=== PATIENT | male | born 1930 | race Caucasian/White ===

== ENCOUNTER 2021-03-01 22:59 | Inpatient (IN) | payer MEDICARE, OTHER ==
[~2021-03-01] VITALS: Ht 165.1 cm; Wt 73.0 kg
[2021-03-01] MEDS ORDERED: IV NS 0.9% 500 ML BAG IV ONE (23:30)
--- NOTE | 2021-03-01 23:30 | NUR ---
Sherita hoover in [facility] - 03/02/21 at 0417 by DASH pt placed on 3L O2
[2021-03-01] MEDS ORDERED: DILTIAZEM HCL 50 MG IV ONE (23:44)
[2021-03-01 23:55] LABS: BASOPHILS % (AUTO) 0.1 % (0.0-2.0); HEMATOCRIT 39 % (39-51); HEMOGLOBIN 12.9 g/dL (13.5-17.5); LYMPHOCYTES # (AUTO) 0.5 /CMM (0.8-4.8); LYMPHOCYTES % (AUTO) 2.7 % (20.0-44.0); MEAN CORPUSCULAR HGB CONC 33 g/dl (31.0-36.0); MEAN CORPUSCULAR VOLUME 86 fL (80-96); MONOCYTES # (AUTO) 1.3 /CMM (0.1-1.30); MONOCYTES % (AUTO) 7.5 % (2.0-12.0); NEUTROPHILS # (AUTO) 15.5 /CMM (1.8-8.9); NEUTROPHILS % (AUTO) 89.7 % (43.0-81.0); PLATELET COUNT (AUTO) 205 /CMM (150-450); RED BLOOD CELL COUNT(AUTO) 4.61 MIL/uL (4.5-6.0); WHITE BLOOD COUNT (AUTO) 17.3 K/uL (4.3-11.0)
--- NOTE | 2021-03-01 23:55 | NUR ---
INDU81 FROM [facility] FOR WEAKNESS. PT EYES OPEN, NONVERBAL. RR EVEN & UNLABORED. PLACED ON GUSSET MAKER, RAPID AFIB. PT SEEN & EVAL'D BY DR. BIANCHI. MEDICATED ORDERED, PT ZEINAB WELL. WILL CONT TO MONITOR.
--- NOTE | 2021-03-01 23:56 | NUR ---
Pt placed on 3L O2
[2021-03-02] VITALS (40 sets, daily range): BP systolic 99–133; BP diastolic 46–89
[2021-03-02] MEDS ORDERED: DILTIAZEM HCL 50 MG IV IV ONE
[2021-03-02 00:05] LABS: CALCIUM, SERUM 8.4 mg/dL (8.5-10.1); CARBON DIOXIDE 22 mmol/L (21-32); CHLORIDE 100 mmol/L (98-107); CREATININE 1.5 mg/dL (0.6-1.3); GLUCOSE 306 mg/dL (74-106); POTASSIUM 4.7 mmol/L (3.5-5.1); SODIUM SERUM 134 mmol/L (136-145); UREA NITROGEN, BLOOD 23 mg/dL (7-18)
[2021-03-02 00:10] LABS: ALANINE AMINOTRANSFERASE 8 U/L (12-78); ALBUMIN 2.8 g/dL (3.4-5.0); ALKALINE PHOSPHATASE 83 U/L (46-116); ASPARTATE AMINOTRANSFERASE 9 U/L (15-37); BILIRUBIN,DIRECT 0.1 mg/dL (0.0-0.2); BILIRUBIN,TOTAL 0.5 mg/dL (0.2-1.0); TOTAL PROTEIN, SERUM 6.6 g/dL (6.4-8.2)
--- NOTE | 2021-03-02 00:23 | NUR ---
covid swab sent to lab
--- NOTE | 2021-03-02 00:43 | NUR ---
urine obtained and sent to lab
--- NOTE | 2021-03-02 01:12 | NUR ---
called lab for f/u. they are running urine now
[2021-03-02 01:21] LABS: BILIRUBIN,URINE Negative (NEGATIVE); COLOR,URINE YELLOW (YELLOW); LEUKOCYTE ESTERASE ,URINE Negative (NEGATIVE); NITRITE, URINE Negative (NEGATIVE); PROTEIN,URINE Negative (NEGATIVE); UGLUCOSE Negative (NEGATIVE); UROBILINOGEN,URINE 0.2 EU/dL (0.2)
--- NOTE | 2021-03-02 01:23 | NUR ---
per lab, covid negative
--- NOTE | 2021-03-02 04:12 | NUR ---
covid swab sent to lab
--- NOTE | 2021-03-02 07:13 | NUR ---
gave report to KHUSHBU Menendez for [facility]
--- NOTE | 2021-03-02 07:23 | NUR ---
RECEIVED REPORT FROM KHUSHBU GILLETTE FOR [facility]. PT IS AAOX1, NOT IN RESPIRATORY DISTRESS, NOTED ELEVATED HEART RATE REFERRED TO . KEPT RESTED AND COMFORTABLE. WILL CONTINUE TO MONITOR.
[2021-03-02] MEDS ORDERED: TRAM50TA2 PO (07:43)
[2021-03-02] MEDS ORDERED: TAMS-12 PO (07:43)
[2021-03-02] MEDS ORDERED: ASPI-1420 PO (07:43)
[2021-03-02] MEDS ORDERED: METF-440 PO (07:43)
[2021-03-02] MEDS ORDERED: FINA5TAB11 PO (07:43)
[2021-03-02] MEDS ORDERED: LORA-258 PO (07:43)
[2021-03-02] MEDS ORDERED: CARB1TAB40 PO (07:43)
[2021-03-02] MEDS ORDERED: ACET-868 PO (07:43)
[2021-03-02] MEDS ORDERED: SENN-261 PO (07:43)
[2021-03-02] MEDS ORDERED: ESCI10TA PO (07:43)
[2021-03-02] MEDS: DILTIAZEM HCL IV 125 MG in IV NS 0.9% 100 ML IV PRN (07:45)
--- NOTE | 2021-03-02 07:45 | NUR ---
CARDIZEM DRIP STARTED 5ML PER HR TO START PER ER MD. TITRATE TO EFFECT.
--- NOTE | 2021-03-02 08:08 | NUR ---
PT SON ED
[2021-03-02] MEDS ORDERED: MAGNESIUM HYDROXIDE 30 ML UDC PO PRN (08:30)
[2021-03-02] MEDS ORDERED: ONDANSETRON HCL/PF 4 MG/2 ML VIAL IVP PRN (08:30)
[2021-03-02] MEDS ORDERED: MAG HYDROX/AL HYDROX/SIMETH 30 ML UDC PO PRN (08:30)
[2021-03-02 08:59] LABS: MAGNESIUM 1.6 mg/dL (1.8-2.4)
[2021-03-02] MEDS ORDERED: ENOXAPARIN SODIUM 60 MG/0.6 ML DISP.SYRIN SQ SCH (09:00)
[2021-03-02] MEDS ORDERED: AMIODARONE 150 MG in IV D5W 100 ML IV ONE (09:00)
[2021-03-02] MEDS ORDERED: ENOXAPARIN SODIUM 60 MG/0.6 ML DISP.SYRIN SQ ONE (09:07)
[2021-03-02] MEDS ORDERED: AMIODARONE 450 MG in IV D5W 250 ML IV PRN (09:30)
[2021-03-02] MEDS: AMIODARONE 450 MG in IV D5W 250 ML IV PRN ×2 (09:45→15:46)
[2021-03-02 10:05] LABS: THYROID STIMULATING HORMONE 0.92 uIU/mL (0.358-3.74)
--- NOTE | 2021-03-02 10:27 | NUR ---
room [id number]
[2021-03-02] MEDS ORDERED: LORAZEPAM 0.5 MG TABLET PO PRN (10:30)
[2021-03-02] MEDS ORDERED: TRAMADOL HCL 50 MG TABLET PO PRN (10:30)
--- NOTE | 2021-03-02 10:33 | NUR ---
REPORT GIVEN TO KHUSHBU BROOKS.
--- NOTE | 2021-03-02 10:45 | NUR ---
ADMITTED FROM ER WITH DIAGNOSIS OF AFIB WITH RVR. ONGOING AMIODARONE DRIP AT 1 MG/HR.MONITOR SHOWS AFIB RATE 110.SBP 120'S. PATIENT NONVERBAL, OPENS EYES TO TACTILE STIMULI. DOES NOT FOLLOW SIMPLE COMMANDS.NO SIGNS OF PAIN NOTED. SKIN INTACT ON INITIAL ASSESS-NOTED SOME SACRAL REDNESS ONLY.
[2021-03-02] MEDS: Magnesium 1GM/D5W 100ML PREMIX 100 ML IV SCH ×2 (11:55→13:08)
--- NOTE | 2021-03-02 12:00 | NUR ---
SPONTANEOUSLY OPENING EYES. NO VERBAL OUTPUT.
[2021-03-02] MEDS: IV NS 0.9% 1,000 ML IV PRN (14:03)
[2021-03-02] MEDS: CARBIDOPA/LEV CR 50/200 MG 1 UDTAB.SA PO SCH ×2 (14:18→17:38)
--- NOTE | 2021-03-02 15:50 | NUR ---
SPOKE TO DR. ROUSE RE: PATEINT COMVERTED TO SR WITH FRQUENT PVC'S- 80'S. PER MD -TO COMPLETE AMIODARONE DTT PER PROTOCOL.
--- NOTE | 2021-03-02 17:00 | NUR ---
[facility] ED VISITING. PATIENT UPDATE GIVEN.
--- NOTE | 2021-03-02 17:55 | NUR ---
REMAINS ON SR WITH FREQUENT PVC'S.BP STABLE. MORE AWAKE BUT DOESN'T FOLLOW SIMPLE COMMANDS. UNABLE TO SWALLOW MEALS AT THIS TIME. MEDS GIVEN WITH SIPS OF WATER.
--- NOTE | 2021-03-02 19:00 | NUR ---
Received patient awake,alert,follows simple commands,but still not talking( mumbles few words),not in any distress,breathing regular and non labored. On Amiodarone drip@ 0.5mg/min.
[2021-03-02] MEDS: SENNOSIDES 8.6 MG TABLET PO SCH (21:31)
[2021-03-02] MEDS: TAMSULOSIN 0.4 MG CAP.SR.24H PO SCH (21:31)
[2021-03-02] MEDS: FINASTERIDE (5 MG) 5 MG TABLET PO SCH (21:31)
--- NOTE | 2021-03-02 22:00 | NUR ---
More alert,awake most of the time,speaking few words in Austrian,follows commands.Remains in SR with occasional APC's. Needs attended.Tolerated PO meds (crushed with applesauce),small sips of water.Aspiration Precaution observed/maintained.
[2021-03-03] VITALS (34 sets, daily range): BP systolic 98–142; BP diastolic 47–79
--- NOTE | 2021-03-03 | NUR ---
Status unchanged,stable,Sinus rhythm,still on Amiodarone drip.
[2021-03-03] MEDS: IV NS 0.9% 1,000 ML IV PRN ×2 (02:07→20:27)
[2021-03-03 05:14] LABS: BASOPHILS % (AUTO) 0.2 % (0.0-2.0); EOSINOPHILS % (AUTO) 0.5 % (0.0-6.0); HEMATOCRIT 31 % (39-51); HEMOGLOBIN 10.6 g/dL (13.5-17.5); LYMPHOCYTES # (AUTO) 0.4 /CMM (0.8-4.8); LYMPHOCYTES % (AUTO) 3.6 % (20.0-44.0); MEAN CORPUSCULAR HGB CONC 34 g/dl (31.0-36.0); MEAN CORPUSCULAR VOLUME 85 fL (80-96); MONOCYTES # (AUTO) 0.9 /CMM (0.1-1.30); MONOCYTES % (AUTO) 9.1 % (2.0-12.0); NEUTROPHILS # (AUTO) 8.6 /CMM (1.8-8.9); NEUTROPHILS % (AUTO) 86.6 % (43.0-81.0); PLATELET COUNT (AUTO) 170 /CMM (150-450); RED BLOOD CELL COUNT(AUTO) 3.66 MIL/uL (4.5-6.0); WHITE BLOOD COUNT (AUTO) 9.9 K/uL (4.3-11.0)
[2021-03-03 05:28] LABS: ALANINE AMINOTRANSFERASE 13 U/L (12-78); ALKALINE PHOSPHATASE 59 U/L (46-116); ASPARTATE AMINOTRANSFERASE 17 U/L (15-37); BILIRUBIN,TOTAL 0.5 mg/dL (0.2-1.0); CALCIUM, SERUM 6.8 mg/dL (8.5-10.1); CARBON DIOXIDE 21 mmol/L (21-32); CHLORIDE 105 mmol/L (98-107); GLUCOSE 307 mg/dL (74-106); MAGNESIUM 1.6 mg/dL (1.8-2.4); PHOSPHORUS 1.8 mg/dL (2.5-4.9); POTASSIUM 3.5 mmol/L (3.5-5.1); SODIUM SERUM 135 mmol/L (136-145); TOTAL PROTEIN, SERUM 5.1 g/dL (6.4-8.2); UREA NITROGEN, BLOOD 18 mg/dL (7-18)
--- NOTE | 2021-03-03 06:00 | NUR ---
Stable ,awake,alert,follows commands. 0700 Report given to Eveline RÍOS.
[2021-03-03 06:09] LABS: CHOLESTEROL 135 mg/dL (<200); HDL CHOLESTEROL 29 mg/dL (40-60); LDL 84 mg/dL (0-99); THYROID STIMULATING HORMONE 0.943 uIU/mL (0.358-3.74); TRIGLYCERIDES 100 mg/dL (30-150)
[2021-03-03] MEDS ORDERED: POTASSIUM PHOSPHATE MM 15 MMOL in IV NS 0.9% 250 ML IV SCH (07:00)
--- NOTE | 2021-03-03 07:00 | NUR ---
RN NOTES RECEIVED PT ON BED, A/Ox1-2, ON 2L O2 N/C , O2 SAT WNL, ON TELE SR HR IN 90'S WITH PAC'S AND PVC'S , , BLUNT DRINING TO GRAVITY, NS AT 75CC/HR RUNNING , SR UP x3, CALL LIGHT WITHIN EASY REACH, BED LOCKED AND IN LOWEST POSITION, CONTINUE TO MONITOR .
[2021-03-03] MEDS: Magnesium 1GM/D5W 100ML PREMIX 100 ML IV SCH ×2 (07:24→08:29)
[2021-03-03] MEDS: POTASSIUM PHOSPHATE MM 7.5 MMOL in IV NS 0.9% 100 ML IV SCH ×2 (08:03→10:59)
[2021-03-03] MEDS: PANTOPRAZOLE 40 MG TABLET.DR PO SCH (08:14)
[2021-03-03] MEDS: AMIODARONE HCL 200 MG TABLET PO SCH ×3 (08:15→16:41)
[2021-03-03] MEDS: ESCITALOPRAM OXALATE (10 MG) 10 MG TABLET PO SCH (08:15)
[2021-03-03] MEDS: CARBIDOPA/LEV CR 50/200 MG 1 UDTAB.SA PO SCH ×3 (08:15→16:45)
[2021-03-03] MEDS: APIXABAN 5 MG TABLET PO SCH ×2 (08:19→16:45)
[2021-03-03] MEDS ORDERED: ASPIRIN EC 81 MG TABLET.DR PO SCH (09:00)
[2021-03-03] MEDS: BLOOD SUGAR DIAGNOSTIC 1 EACH STRIP VI SCH ×3 (11:55→22:12)
[2021-03-03] MEDS ORDERED: DEXTROSE 50%-WATER 50 ML DISP.SYRIN IV PRN (12:00)
--- NOTE | 2021-03-03 14:10 | NUR ---
RN NOTES PT TRANSFERRED TO ROOM 114-1 TELE STATUS IN STABLE CONDITION VIA ACLS PROTOCOL. REPORT GIVEN TO SEMAJ RÍOS FOR CONTINUITY OF CARE.
[2021-03-03] MEDS: SOD FERRIC GLUC 125 MG in IV NS 0.9% 100 ML IV SCH (14:15)
[2021-03-03] MEDS: INSULIN REGULAR, HUMAN 100 UNIT/ML 3 ML VIAL SQ PRN (16:49)
[2021-03-03] MEDS: GLUCERNA SHAKE 237 ML CAN PO SCH (17:39)
--- NOTE | 2021-03-03 18:00 | NUR ---
RN OPENING NOTE RECEIVED PATIENT ALERT ORIENTED X1 VERBALLY RESPONSIVE SERBIAN SPEAKER ONLY ON 2L OXYGEN VIA NASAL CANNULA,O2:95% IV SITE IS ON RIGHT AND LEFT HAND INTACT PATENT ON IV HYDRATION NS 75CC/HR BLUNT CATHETER IN PLACE URINE DRAINING DARK YELLOW AND CLOUDY SAFETY MEASURE IMPLEMENT CALL LIGHT WITHIN REACH,CONTINUE TO MONITOR
[2021-03-03] MEDS: FINASTERIDE (5 MG) 5 MG TABLET PO SCH (21:25)
[2021-03-03] MEDS: SENNOSIDES 8.6 MG TABLET PO SCH (21:25)
[2021-03-03] MEDS: TAMSULOSIN 0.4 MG CAP.SR.24H PO SCH (21:25)
[2021-03-03] MEDS: ACETAMINOPHEN 325 MG TABLET PO PRN (21:49)
[2021-03-03] MEDS: *INSULIN REGULAR(HUMULIN R)HUM 100 UNIT/ML VIAL SQ PRN (22:12)
[2021-03-04] VITALS: BP 135/58
[2021-03-04 04:00] VITALS: BP 136/60
--- NOTE | 2021-03-04 06:49 | NUR ---
RN CLOSING NOTE PATIENT REMAINS ON ALERT ORIENTED X1 ON 2L OXYGEN VIA NASAL CANNULA,O2:96% NO SOB NOT ACUTE DISTRESS NOTED ALL DUE MEDS GIVEN MD ORDERED KEPT CLEAN AND DRY ALL THE TIME,ALL NEEDS MET ENDORSE NEXT COMING SHIFT FOR CONTINUATION OF CARE
[2021-03-04 07:15] LABS: BASOPHILS % (AUTO) 0.2 % (0.0-2.0); EOSINOPHILS % (AUTO) 2.6 % (0.0-6.0); HEMATOCRIT 33 % (39-51); HEMOGLOBIN 11.2 g/dL (13.5-17.5); LYMPHOCYTES # (AUTO) 0.5 /CMM (0.8-4.8); MEAN CORPUSCULAR HGB CONC 34 g/dl (31.0-36.0); MEAN CORPUSCULAR VOLUME 84 fL (80-96); MONOCYTES # (AUTO) 0.9 /CMM (0.1-1.30); MONOCYTES % (AUTO) 11.4 % (2.0-12.0); NEUTROPHILS # (AUTO) 5.9 /CMM (1.8-8.9); NEUTROPHILS % (AUTO) 78.8 % (43.0-81.0); PLATELET COUNT (AUTO) 205 /CMM (150-450); RED BLOOD CELL COUNT(AUTO) 3.95 MIL/uL (4.5-6.0); WHITE BLOOD COUNT (AUTO) 7.5 K/uL (4.3-11.0)
--- NOTE | 2021-03-04 07:25 | NUR ---
RN OPENING NOTES PT RECEIVED RESTING IN SEMI-FOWLERS POSITION. PATIENT A&OX1 BOTSWANAN SPEAKING. PT ON O2 THERAPY VIA NC AT 2 LPM TOLERATING WELL. LEFT HAND #22 G IV ACCESS RUNNING NS AT 75 ML/HR INTACT AND PATENT. NO SWELLING OR REDNESS NOTED AT SITE. NO RESPIRATORY DISTRESS NO PAIN OR DISCOMFORT NOTED OR REPORTED AT THIS TIME. SAFETY PRECAUTIONS IMPLEMENTED, BED LOCKED IN LOWEST POSITION, SIDE RAILS UP X2, CALL LIGHT WITHIN REACH. WILL CONTINUE TO MONITOR AND PROVIDE CARE THROUGHOUT SHIFT
[2021-03-04] MEDS: BLOOD SUGAR DIAGNOSTIC 1 EACH STRIP VI SCH ×4 (07:30→22:07)
[2021-03-04 07:43] LABS: CALCIUM, SERUM 7.9 mg/dL (8.5-10.1); CREATININE 1.1 mg/dL (0.6-1.3); POTASSIUM 4.5 mmol/L (3.5-5.1)
[2021-03-04 08:00] VITALS: BP 105/66
[2021-03-04] MEDS: GLUCERNA SHAKE 237 ML CAN PO SCH ×2 (08:00→16:54)
[2021-03-04] MEDS: PANTOPRAZOLE 40 MG TABLET.DR PO SCH (09:16)
[2021-03-04] MEDS: AMIODARONE HCL 200 MG TABLET PO SCH ×3 (09:17→16:39)
[2021-03-04] MEDS: ESCITALOPRAM OXALATE (10 MG) 10 MG TABLET PO SCH (09:17)
[2021-03-04] MEDS: APIXABAN 5 MG TABLET PO SCH ×2 (09:23→16:54)
[2021-03-04] MEDS: INSULIN REGULAR, HUMAN 100 UNIT/ML 3 ML VIAL SQ PRN ×3 (09:23→16:56)
[2021-03-04] MEDS: CARBIDOPA/LEV CR 50/200 MG 1 UDTAB.SA PO SCH ×3 (09:26→16:53)
[2021-03-04] MEDS ORDERED: CEFTRIAXONE 1 G VIAL IM SCH (10:00)
[2021-03-04] MEDS: CEFTRIAXONE 1 G in IV D5W 50 ML IV SCH (11:46)
[2021-03-04 12:00] VITALS: BP 99/77
[2021-03-04] MEDS: SOD FERRIC GLUC 125 MG in IV NS 0.9% 100 ML IV SCH (14:36)
[2021-03-04 16:00] VITALS: BP 113/67
--- NOTE | 2021-03-04 19:10 | NUR ---
RN OPENING NOTE RECEIVED PATIENT IN BED RESTING ALERT ORIENTED X1 GREEK SPEAKING ONLY,ON 2L OXYGEN VIA NASAL CANNULA O2:94% IV SITE IS ON LEFT AND RIGHT HAND INTACT PATENT BLUNT CATHETER,IN PLACE URINE DRAINING RED AND CLOUDY,INCONTINENT TO BOWEL, BED IN LOW POSITION AND LOCKED BED ALARM IS ON, SAFETY MEASURE IMPLEMENT CONTINUE TO MONITOR.
--- NOTE | 2021-03-04 19:47 | NUR ---
RN CLOSING NOTES PT RESTING IN SEMI-FOWLERS POSITION. PATIENT A&OX1 ROMANIAN SPEAKING. PT ON O2 THERAPY VIA NC AT 2 LPM TOLERATING WELL. LEFT HAND #22 G IV ACCESS INTACT AND PATENT. NO SWELLING OR REDNESS NOTED AT SITE. NO RESPIRATORY DISTRESS NO PAIN OR DISCOMFORT NOTED OR REPORTED AT THIS TIME. SAFETY PRECAUTIONS IMPLEMENTED, BED LOCKED IN LOWEST POSITION, SIDE RAILS UP X2, CALL LIGHT WITHIN REACH. WILL ENDORSE CARE TO UPCOMING SHIFT.
[2021-03-04 20:00] VITALS: BP 134/84
[2021-03-04] MEDS: SENNOSIDES 8.6 MG TABLET PO SCH (21:05)
[2021-03-04] MEDS: TAMSULOSIN 0.4 MG CAP.SR.24H PO SCH (21:05)
[2021-03-04] MEDS: FINASTERIDE (5 MG) 5 MG TABLET PO SCH (21:08)
--- NOTE | 2021-03-04 21:16 | NUR ---
RN NOTE PATIENT PULLED OUT HIS IV LINE ON LEFT HAND CLEAN AND DRESSED THE SITE CONTINUE TO MONITOR.
[2021-03-04] MEDS: *INSULIN REGULAR(HUMULIN R)HUM 100 UNIT/ML VIAL SQ PRN (22:11)
[2021-03-05] VITALS: BP 139/77
[2021-03-05 04:00] VITALS: BP 130/69
--- NOTE | 2021-03-05 06:49 | NUR ---
RN CLOSING NOTE PATIENT REMAINS ON ALERT ORIENTED X1 VERBALLY RESPONSIVE NO SOB NOT ACUTE DISTRESS NOTED,ON 2L OXYGEN VIA NASAL CANNULA, O2:94% BLUNT CATHETER IN PLACE URINE CLOUDY AND RED ALL DUE MEDS GIVEN MD ORDERED KEEP CLEAN AND DRY ALL THE TIME,ALL NEEDS MET ENDORSE NEXT COMING SHIFT FOR CONTINUATION OF CARE.
[2021-03-05 07:07] LABS: BASOPHILS % (AUTO) 0.3 % (0.0-2.0); EOSINOPHILS % (AUTO) 2.5 % (0.0-6.0); HEMATOCRIT 35 % (39-51); HEMOGLOBIN 11.6 g/dL (13.5-17.5); LYMPHOCYTES # (AUTO) 0.7 /CMM (0.8-4.8); MEAN CORPUSCULAR HGB CONC 33 g/dl (31.0-36.0); MEAN CORPUSCULAR VOLUME 85 fL (80-96); MONOCYTES # (AUTO) 1.1 /CMM (0.1-1.30); MONOCYTES % (AUTO) 13.4 % (2.0-12.0); NEUTROPHILS # (AUTO) 6.2 /CMM (1.8-8.9); NEUTROPHILS % (AUTO) 75.8 % (43.0-81.0); PLATELET COUNT (AUTO) 234 /CMM (150-450); RED BLOOD CELL COUNT(AUTO) 4.18 MIL/uL (4.5-6.0); WHITE BLOOD COUNT (AUTO) 8.2 K/uL (4.3-11.0)
[2021-03-05 07:42] LABS: CALCIUM, SERUM 8.1 mg/dL (8.5-10.1); CREATININE 1.1 mg/dL (0.6-1.3); MAGNESIUM 1.9 mg/dL (1.8-2.4); PHOSPHORUS 3.2 mg/dL (2.5-4.9); POTASSIUM 4.5 mmol/L (3.5-5.1)
[2021-03-05] MEDS: PANTOPRAZOLE 40 MG TABLET.DR PO SCH (07:46)
[2021-03-05] MEDS: BLOOD SUGAR DIAGNOSTIC 1 EACH STRIP VI SCH ×4 (07:46→22:18)
[2021-03-05 08:00] VITALS: BP 145/79
[2021-03-05] MEDS ORDERED: POTASSIUM CHLORIDE 20 MEQ TAB.PRT.SR PO SCH (08:00)
[2021-03-05] MEDS: FUROSEMIDE 40 MG/4 ML VIAL IV SCH ×2 (09:33→12:20)
[2021-03-05] MEDS: GLUCERNA SHAKE 237 ML CAN PO SCH ×2 (09:36→18:06)
[2021-03-05] MEDS: AMIODARONE HCL 200 MG TABLET PO SCH ×3 (12:02→18:06)
[2021-03-05] MEDS: APIXABAN 5 MG TABLET PO SCH ×2 (12:03→17:00)
[2021-03-05] MEDS: ESCITALOPRAM OXALATE (10 MG) 10 MG TABLET PO SCH (12:07)
[2021-03-05] MEDS: CARBIDOPA/LEV CR 50/200 MG 1 UDTAB.SA PO SCH ×3 (12:12→18:12)
[2021-03-05] MEDS: CEFTRIAXONE 1 G in IV D5W 50 ML IV SCH (12:12)
[2021-03-05] MEDS: INSULIN REGULAR, HUMAN 100 UNIT/ML 3 ML VIAL SQ PRN ×2 (13:41→18:00)
[2021-03-05] MEDS: SOD FERRIC GLUC 125 MG in IV NS 0.9% 100 ML IV SCH (14:31)
[2021-03-05 16:00] VITALS: BP 121/66
[2021-03-05] MEDS ORDERED: FUROSEMIDE 40 MG/4 ML VIAL IV SCH (18:30)
--- NOTE | 2021-03-05 19:10 | NUR ---
RN OPENING NOTE RECEIVED PATIENT IN BED RESTING ALERT ORIENTED X1 LAO SPEAKING ONLY,ON 2L OXYGEN VIA NASAL CANNULA O2:96% IV SITE IS ON RIGHT HAND INTACT PATENT BLUNT CATHETER,IN PLACE URINE DRAINING YELLOW AND CLEAR INCONTINENT TO BOWEL, BED IN LOW POSITION AND LOCKED BED ALARM IS ON, SAFETY MEASURE IMPLEMENT CONTINUE TO MONITOR.
[2021-03-05 20:00] VITALS: BP 113/63
[2021-03-05] MEDS: SENNOSIDES 8.6 MG TABLET PO SCH (21:02)
[2021-03-05] MEDS: TAMSULOSIN 0.4 MG CAP.SR.24H PO SCH (21:02)
[2021-03-05] MEDS: FINASTERIDE (5 MG) 5 MG TABLET PO SCH (21:02)
[2021-03-05] MEDS: *INSULIN REGULAR(HUMULIN R)HUM 100 UNIT/ML VIAL SQ PRN (22:23)
[2021-03-06] VITALS: BP 115/63
[2021-03-06 04:00] VITALS: BP 137/64
[2021-03-06 06:00] LABS: BASOPHILS % (AUTO) 0.3 % (0.0-2.0); EOSINOPHILS % (AUTO) 3.1 % (0.0-6.0); HEMATOCRIT 36 % (39-51); LYMPHOCYTES # (AUTO) 0.9 /CMM (0.8-4.8); LYMPHOCYTES % (AUTO) 9.2 % (20.0-44.0); MEAN CORPUSCULAR HGB CONC 33 g/dl (31.0-36.0); MEAN CORPUSCULAR VOLUME 85 fL (80-96); MONOCYTES # (AUTO) 1.5 /CMM (0.1-1.30); MONOCYTES % (AUTO) 14.6 % (2.0-12.0); NEUTROPHILS # (AUTO) 7.3 /CMM (1.8-8.9); NEUTROPHILS % (AUTO) 72.8 % (43.0-81.0); PLATELET COUNT (AUTO) 250 /CMM (150-450); RED BLOOD CELL COUNT(AUTO) 4.29 MIL/uL (4.5-6.0)
[2021-03-06 06:04] LABS: ALBUMIN 2.4 g/dL (3.4-5.0); BILIRUBIN,TOTAL 0.5 mg/dL (0.2-1.0); CREATININE 1.2 mg/dL (0.6-1.3); MAGNESIUM 1.6 mg/dL (1.8-2.4); PHOSPHORUS 3.7 mg/dL (2.5-4.9); POTASSIUM 3.9 mmol/L (3.5-5.1); TOTAL PROTEIN, SERUM 6.2 g/dL (6.4-8.2)
[2021-03-06 06:15] LABS: CALCIUM, SERUM 8.6 mg/dL (8.5-10.1)
--- NOTE | 2021-03-06 06:39 | NUR ---
RN CLOSING NOTE PATIENT REMAINS ON ALERT ORIENTED X1 VERBALLY RESPONSIVE NO SOB NOT ACUTE DISTRESS NOTED,ON 2L OXYGEN VIA NASAL CANNULA,O2;96% ALL DUE MEDS GIVEN MD ORDERED KEPT CLEAN AND DRY ALL THE TIME,REPOSITIONED EVERY 2 HOURS,ENDORSE NEXT COMING SHIFT FOR CONTINUATION OF CARE.
[2021-03-06 08:00] VITALS: BP 147/67
[2021-03-06] MEDS: GLUCERNA SHAKE 237 ML CAN PO SCH ×2 (08:00→17:19)
[2021-03-06] MEDS: ESCITALOPRAM OXALATE (10 MG) 10 MG TABLET PO SCH (08:16)
[2021-03-06] MEDS: CARBIDOPA/LEV CR 50/200 MG 1 UDTAB.SA PO SCH ×3 (08:16→17:19)
[2021-03-06] MEDS: PANTOPRAZOLE 40 MG TABLET.DR PO SCH (08:16)
[2021-03-06] MEDS: AMIODARONE HCL 200 MG TABLET PO SCH ×3 (08:17→17:19)
[2021-03-06] MEDS: BLOOD SUGAR DIAGNOSTIC 1 EACH STRIP VI SCH ×4 (08:17→21:58)
[2021-03-06] MEDS: INSULIN REGULAR, HUMAN 100 UNIT/ML 3 ML VIAL SQ PRN ×3 (08:24→17:36)
[2021-03-06] MEDS: APIXABAN 5 MG TABLET PO SCH ×2 (08:25→17:36)
[2021-03-06] MEDS: FUROSEMIDE 40 MG/4 ML VIAL IV SCH ×3 (08:25→17:19)
[2021-03-06] MEDS: POTASSIUM CHLORIDE 20 MEQ TAB.PRT.SR PO SCH ×3 (08:27→12:03)
[2021-03-06] MEDS: Magnesium 1GM/D5W 100ML PREMIX 100 ML IV SCH ×2 (09:37→10:42)
[2021-03-06] MEDS: CEFTRIAXONE 1 G in IV D5W 50 ML IV SCH (12:02)
--- NOTE | 2021-03-06 12:55 | NUR ---
Patient noted with blood sugar of 407mg/dl and then 393 when rechecked.Given 15 units of short acting insulin and informed MD Pompa. New orders for long acting entered by . Patient remained free of showing any s/s of hyperglycemia.
[2021-03-06] MEDS: SOD FERRIC GLUC 125 MG in IV NS 0.9% 100 ML IV SCH (14:42)
--- NOTE | 2021-03-06 15:30 | NUR ---
Patient pulled out his iv line to right hand. New iv line re inserted to right hand 20 gauze, patent and flushes well.
[2021-03-06 16:00] VITALS: BP 124/78
--- NOTE | 2021-03-06 19:25 | NUR ---
RN CLOSING NOTES Patient currently in bed. Alert and oriented x 1. No c/o sob. IV line to RIGHT 20 GAUZE saline lock . No s/s of respiratory distress. Endorsement given to noc shift. Patient noted with urine output of 1800cc. Turned and repositioned q2h and prn. Noted with meal intake of of 100% for breakfast and 75% for lunch and dinner. Bed is in lowest and locked position
--- NOTE | 2021-03-06 19:50 | NUR ---
RN NOTE RECEIVED PT IN BED A/A/O X1, ON 2L VIA NC SATING 98%. PT HAS BLUNT CATHETER DRAINING YELLOW URINE. SAFETY MEASURES IN PLACE.
[2021-03-06 20:00] VITALS: BP 116/58
[2021-03-06] MEDS: TAMSULOSIN 0.4 MG CAP.SR.24H PO SCH (21:30)
[2021-03-06] MEDS: FINASTERIDE (5 MG) 5 MG TABLET PO SCH (21:30)
[2021-03-06] MEDS: SENNOSIDES 8.6 MG TABLET PO SCH (21:30)
[2021-03-06] MEDS: INSULIN GLARGINE, 100 UNIT/ML CARTRIDGE SQ SCH (21:56)
[2021-03-06] MEDS: *INSULIN REGULAR(HUMULIN R)HUM 100 UNIT/ML VIAL SQ PRN (21:57)
[2021-03-07 04:00] VITALS: BP 138/64
[2021-03-07 06:33] LABS: BASOPHILS % (AUTO) 0.3 % (0.0-2.0); EOSINOPHILS % (AUTO) 2.3 % (0.0-6.0); HEMATOCRIT 40 % (39-51); HEMOGLOBIN 13.1 g/dL (13.5-17.5); LYMPHOCYTES # (AUTO) 0.9 /CMM (0.8-4.8); LYMPHOCYTES % (AUTO) 7.7 % (20.0-44.0); MEAN CORPUSCULAR HGB CONC 33 g/dl (31.0-36.0); MEAN CORPUSCULAR VOLUME 84 fL (80-96); MONOCYTES # (AUTO) 1.5 /CMM (0.1-1.30); MONOCYTES % (AUTO) 12.4 % (2.0-12.0); NEUTROPHILS # (AUTO) 9.5 /CMM (1.8-8.9); NEUTROPHILS % (AUTO) 77.3 % (43.0-81.0); PLATELET COUNT (AUTO) 285 /CMM (150-450); RED BLOOD CELL COUNT(AUTO) 4.74 MIL/uL (4.5-6.0); WHITE BLOOD COUNT (AUTO) 12.2 K/uL (4.3-11.0)
[2021-03-07 07:06] LABS: ALBUMIN 2.8 g/dL (3.4-5.0); BILIRUBIN,TOTAL 0.6 mg/dL (0.2-1.0); CALCIUM, SERUM 8.8 mg/dL (8.5-10.1); CREATININE 1.3 mg/dL (0.6-1.3); MAGNESIUM 1.8 mg/dL (1.8-2.4); PHOSPHORUS 3.8 mg/dL (2.5-4.9)
--- NOTE | 2021-03-07 07:13 | NUR ---
RN NOTE REPORT GIVEN TO ONCOMING SHIFT FOR MONA.
[2021-03-07 08:00] VITALS: BP 124/68
--- NOTE | 2021-03-07 08:00 | NUR ---
RN OPENING NOTE RECEIVED PATIENT IN BED, AO X 1, ABLE TO RESPONDS ALL STIMULI. DOES NO APPEARS DISTRESS OR DISCOMFORT. SKIN IS WARM TO TOUCH, KEEP CLEAN/DRY INTACT IV SITE. RESPIRATORY EVEN AND UNLABORED WITH OXYGEN AT 2LPM. KEPT ELEVATED HOB FOR ENSURE AIR AND ASPIRATION PRECAUTION, ALSO LOWEST BED POSITION FOR SAFETY. CALL LIGHT WITHIN REACH, WILL CONTINUE TO MONITOR.
[2021-03-07] MEDS: BLOOD SUGAR DIAGNOSTIC 1 EACH STRIP VI SCH ×4 (08:25→21:36)
[2021-03-07] MEDS: PANTOPRAZOLE 40 MG TABLET.DR PO SCH (08:25)
[2021-03-07] MEDS: AMIODARONE HCL 200 MG TABLET PO SCH ×3 (08:26→16:44)
[2021-03-07] MEDS: ESCITALOPRAM OXALATE (10 MG) 10 MG TABLET PO SCH (08:26)
[2021-03-07] MEDS: CARBIDOPA/LEV CR 50/200 MG 1 UDTAB.SA PO SCH ×3 (08:26→16:44)
[2021-03-07] MEDS: *INSULIN REGULAR(HUMULIN R)HUM 100 UNIT/ML VIAL SQ PRN ×4 (08:28→21:40)
[2021-03-07] MEDS: APIXABAN 5 MG TABLET PO SCH ×2 (08:28→16:44)
[2021-03-07] MEDS: GLUCERNA SHAKE 237 ML CAN PO SCH ×2 (08:35→16:57)
[2021-03-07] MEDS: FUROSEMIDE 40 MG/4 ML VIAL IV SCH ×3 (08:37→16:42)
[2021-03-07] MEDS: CEFTRIAXONE 1 G in IV D5W 50 ML IV SCH (11:34)
[2021-03-07] MEDS: SOD FERRIC GLUC 125 MG in IV NS 0.9% 100 ML IV SCH (13:56)
[2021-03-07 16:00] VITALS: BP 111/65
--- NOTE | 2021-03-07 17:26 | NUR ---
RN CLOSING NOTE PATIENT RESTING IN BED, REMAINS AO X 1. SKIN IS WARM TOUCH, KEEP CLEAN/DRY INTACT IV SITE, SKIN CARE PROVIDED. RESPIRATORY EVEN AND UNLABORED IN ROOM AIR. KEPT ELEVATED HOB FOR ENSURE AIRWAY AND ASPIRATION PRECAUTION, ALSO LOWEST BED POSITION FOR SAFETY. BED ALARM IS ON AT ALL THE TIMES. CALL LIGHT WITHIN REACH, WILL ENDORSE LOGISTICS PROJECT MANAGER
--- NOTE | 2021-03-07 19:49 | NUR ---
RN NOTE PATIENT ALERT AND ORIENTED X1. ON O2 2LPM VIA NASAL CANNULA. NO SOB NOTED, RESPIRATIONS EVEN AND UNLABORED. WITH BLUNT CATH, PATENT AND INTACT, DRAINING YELLOW URINE WITH MINIMAL BLOOD CLOTS. IV ACCESS RIGHT HAND #20 SL. FLUSHED WITH NS, NO S/S OF INFILTRATION. BED LOCKED AND IN LOWEST POSITION. CALL LIGHT WITHIN REACH. ALL NEEDS ANTICIPATED.
[2021-03-07 20:00] VITALS: BP 111/61
[2021-03-07] MEDS: FINASTERIDE (5 MG) 5 MG TABLET PO SCH (21:36)
[2021-03-07] MEDS: SENNOSIDES 8.6 MG TABLET PO SCH (21:36)
[2021-03-07] MEDS: TAMSULOSIN 0.4 MG CAP.SR.24H PO SCH (21:36)
[2021-03-07] MEDS: INSULIN GLARGINE, 100 UNIT/ML CARTRIDGE SQ SCH (21:39)
[2021-03-08 04:00] VITALS: BP 103/56
[2021-03-08 06:21] LABS: BASOPHILS % (AUTO) 0.4 % (0.0-2.0); HEMATOCRIT 40 % (39-51); HEMOGLOBIN 13.2 g/dL (13.5-17.5); LYMPHOCYTES # (AUTO) 1.3 /CMM (0.8-4.8); LYMPHOCYTES % (AUTO) 10.3 % (20.0-44.0); MEAN CORPUSCULAR HGB CONC 33 g/dl (31.0-36.0); MEAN CORPUSCULAR VOLUME 84 fL (80-96); MONOCYTES # (AUTO) 1.5 /CMM (0.1-1.30); MONOCYTES % (AUTO) 12.4 % (2.0-12.0); NEUTROPHILS # (AUTO) 9.1 /CMM (1.8-8.9); NEUTROPHILS % (AUTO) 73.9 % (43.0-81.0); PLATELET COUNT (AUTO) 303 /CMM (150-450); RED BLOOD CELL COUNT(AUTO) 4.78 MIL/uL (4.5-6.0); WHITE BLOOD COUNT (AUTO) 12.3 K/uL (4.3-11.0)
--- NOTE | 2021-03-08 06:44 | NUR ---
RN NOTE PATIENT A/O X1. ON O2 2LPM VIA NASAL CANNULA. NO SOB NOTED, RESPIRATIONS EVEN AND UNLABORED. WITH BLUNT CATH OUTPUT 500CC. IV ACCESS RIGHT HAND #20 SL. FLUSHED WITH NS, NO S/S OF INFILTRATION. ALL DUE MEDS GIVEN ORDERED. NO SIGNIFICANT CHANGES DURING THIS SHIFT. BED LOCKED AND IN LOWEST POSITION. CALL LIGHT WITHIN REACH. WILL ENDORSE TO AM SHIFT.
[2021-03-08 06:48] LABS: ALANINE AMINOTRANSFERASE 9 U/L (12-78); ALBUMIN 2.6 g/dL (3.4-5.0); ALKALINE PHOSPHATASE 80 U/L (46-116); ASPARTATE AMINOTRANSFERASE 12 U/L (15-37); BILIRUBIN,TOTAL 0.6 mg/dL (0.2-1.0); CALCIUM, SERUM 8.9 mg/dL (8.5-10.1); CARBON DIOXIDE 30 mmol/L (21-32); CHLORIDE 98 mmol/L (98-107); CREATININE 1.7 mg/dL (0.6-1.3); GLUCOSE 168 mg/dL (74-106); PHOSPHORUS 4.4 mg/dL (2.5-4.9); POTASSIUM 4.3 mmol/L (3.5-5.1); SODIUM SERUM 138 mmol/L (136-145); TOTAL PROTEIN, SERUM 6.9 g/dL (6.4-8.2); UREA NITROGEN, BLOOD 37 mg/dL (7-18)
[2021-03-08 06:55] LABS: THYROID STIMULATING HORMONE 1.278 uIU/mL (0.358-3.74); URIC ACID 8.1 mg/dL (2.6-7.2)
[2021-03-08] MEDS: BLOOD SUGAR DIAGNOSTIC 1 EACH STRIP VI SCH ×4 (07:49→22:06)
[2021-03-08] MEDS: *INSULIN REGULAR(HUMULIN R)HUM 100 UNIT/ML VIAL SQ PRN ×4 (07:52→22:08)
[2021-03-08] MEDS: GLUCERNA SHAKE 237 ML CAN PO SCH ×3 (08:00→17:16)
[2021-03-08] MEDS: PANTOPRAZOLE 40 MG TABLET.DR PO SCH (08:17)
[2021-03-08] MEDS: ESCITALOPRAM OXALATE (10 MG) 10 MG TABLET PO SCH (08:43)
[2021-03-08] MEDS: CARBIDOPA/LEV CR 50/200 MG 1 UDTAB.SA PO SCH ×3 (08:44→17:26)
[2021-03-08] MEDS: AMIODARONE HCL 200 MG TABLET PO SCH ×3 (08:47→17:00)
[2021-03-08] MEDS: APIXABAN 5 MG TABLET PO SCH ×2 (08:51→17:28)
[2021-03-08] MEDS ORDERED: FUROSEMIDE 40 MG TABLET PO SCH (09:00)
[2021-03-08] MEDS: POTASSIUM CHLORIDE 20 MEQ TAB.PRT.SR PO SCH (09:31)
[2021-03-08] MEDS: CEFTRIAXONE 1 G in IV D5W 50 ML IV SCH (11:55)
[2021-03-08 12:00] VITALS: BP 115/56
[2021-03-08] MEDS ORDERED: IV NS 0.45% 500 ML IV PRN (12:30)
--- NOTE | 2021-03-08 19:09 | NUR ---
MS RN CLOSING NOTE PATIENT CURRENTLY RESTING IN BED, A/O X1. ON OXYGEN 2L VIA NASAL CANNULA - TOLERATING WELL. NO PAIN NOTED. NO SOB NOTED. BLUNT INTACT - DRAINING DARK RED URINE. AWARE, ELIQUIS TO BE HELD. 300 OUTPUT THIS SHIFT. IV ACCESS TO RIGHT HAND #20 - INTACT AND PATENT, RUNNING .45% NS @ 60ML/HR. SAFETY PRECAUTIONS IMPLEMENTED. CALL LIGHT WITHIN REACH. WILL ENDORSE TO SURGICAL DEVICE SALES REPRESENTATIVE NURSE.
--- NOTE | 2021-03-08 19:15 | NUR ---
RN NOTE RECEIVED PATIENT IN BED RESTING COMFORTABLY, ON SEMI TAN'S, AO X 1, IN NO S/SX OF ACUTE DISTRESS AT THIS TIME, PATIENT'S BREATHING IS EVEN AND UNLABORED, SATURATION AT 98% ON 2L VIA NC, HR IS 79. NOTED IV SITE AT R HAND 20G, PATENT AND FLUSHING WELL, NO S/S OF INFECTION OR INFILTRATION, WITH IV FLUID OF 0.45 NS AT 60 ML/HR. BLUNT CATHETER CONNECTED TO URINE BAG IN PLACE, DRAINING TO A DARK RED OUTPUT, WAS AWARE PER SERENA RN, ORDERS RECEIVED TO HOLD ELIQUIS. ASPIRATION PRECAUTIONS MAINTAINED. SAFETY MEASURES IMPLEMENTED. PATIENT BED ALARM IS ON. HEAD OF BED ELEVATED. BED IS LOCKED, IN LOWEST POSITION AND SIDE RAILS UP. CALL LIGHT WITHIN REACH OF THE PATIENT. WILL CONTINUE TO MONITOR AND REASSESS FOR ANY CHANGES.
[2021-03-08 20:00] VITALS: BP 112/57
[2021-03-08] MEDS: SENNOSIDES 8.6 MG TABLET PO SCH (21:59)
[2021-03-08] MEDS: FINASTERIDE (5 MG) 5 MG TABLET PO SCH (21:59)
[2021-03-08] MEDS: TAMSULOSIN 0.4 MG CAP.SR.24H PO SCH (21:59)
[2021-03-08] MEDS: INSULIN GLARGINE, 100 UNIT/ML CARTRIDGE SQ SCH (22:07)
[2021-03-09 04:00] VITALS: BP 114/53
[2021-03-09 06:42] LABS: BASOPHILS # (AUTO) 0.1 /CMM (0.0-0.2); BASOPHILS % (AUTO) 0.4 % (0.0-2.0); EOSINOPHILS % (AUTO) 4.2 % (0.0-6.0); HEMATOCRIT 38 % (39-51); HEMOGLOBIN 12.5 g/dL (13.5-17.5); LYMPHOCYTES # (AUTO) 1.3 /CMM (0.8-4.8); LYMPHOCYTES % (AUTO) 11.2 % (20.0-44.0); MEAN CORPUSCULAR HGB CONC 33 g/dl (31.0-36.0); MEAN CORPUSCULAR VOLUME 85 fL (80-96); MONOCYTES # (AUTO) 1.2 /CMM (0.1-1.30); MONOCYTES % (AUTO) 10.2 % (2.0-12.0); NEUTROPHILS # (AUTO) 8.6 /CMM (1.8-8.9); PLATELET COUNT (AUTO) 264 /CMM (150-450); RED BLOOD CELL COUNT(AUTO) 4.46 MIL/uL (4.5-6.0); WHITE BLOOD COUNT (AUTO) 11.6 K/uL (4.3-11.0)
[2021-03-09 07:00] LABS: CALCIUM, SERUM 8.2 mg/dL (8.5-10.1); CARBON DIOXIDE 29 mmol/L (21-32); CHLORIDE 98 mmol/L (98-107); CREATININE 1.6 mg/dL (0.6-1.3); GLUCOSE 121 mg/dL (74-106); MAGNESIUM 2.2 mg/dL (1.8-2.4); POTASSIUM 4.3 mmol/L (3.5-5.1); SODIUM SERUM 133 mmol/L (136-145); UREA NITROGEN, BLOOD 45 mg/dL (7-18)
--- NOTE | 2021-03-09 07:30 | NUR ---
RN OPENING NOTE Received patient awake in bed appears calm and relaxed. No signs of distress. On NC 2L tolerating well. Patient is AOx1 obeys commands but non verbal. Smith catheter draining dark red urine by gravity. R hand #20 running 0.45NS @ 60ml/hr. Safety measures maintained. Will cont to monitor.
[2021-03-09 08:00] VITALS: BP 131/65
[2021-03-09] MEDS: AMIODARONE HCL 200 MG TABLET PO SCH ×3 (08:28→16:30)
[2021-03-09] MEDS: ESCITALOPRAM OXALATE (10 MG) 10 MG TABLET PO SCH (08:28)
[2021-03-09] MEDS: POTASSIUM CHLORIDE 20 MEQ TAB.PRT.SR PO SCH (08:28)
[2021-03-09] MEDS: PANTOPRAZOLE 40 MG TABLET.DR PO SCH (08:29)
[2021-03-09] MEDS: CARBIDOPA/LEV CR 50/200 MG 1 UDTAB.SA PO SCH ×3 (08:29→16:30)
[2021-03-09] MEDS: GLUCERNA SHAKE 237 ML CAN PO SCH ×2 (08:29→17:31)
[2021-03-09] MEDS: APIXABAN 5 MG TABLET PO SCH ×2 (08:30→16:30)
[2021-03-09] MEDS: BLOOD SUGAR DIAGNOSTIC 1 EACH STRIP VI SCH ×4 (08:39→21:14)
[2021-03-09] MEDS: INSULIN REGULAR, HUMAN 100 UNIT/ML 3 ML VIAL SQ PRN ×3 (08:41→17:35)
[2021-03-09] MEDS: IV NS 0.9% 1,000 ML IV PRN (12:49)
[2021-03-09 16:00] VITALS: BP 105/52
--- NOTE | 2021-03-09 19:00 | NUR ---
RN NOTE RECEIVED PATIENT IN BED RESTING COMFORTABLY, ON SEMI TAN'S, AO X 1, IN NO S/SX OF ACUTE DISTRESS AT THIS TIME, PATIENT'S BREATHING IS EVEN AND UNLABORED, SATURATION AT 98% ON 2L VIA NC, HR IS 79. NOTED IV SITE AT R HAND 20G, PATENT AND FLUSHING WELL, NO S/S OF INFECTION OR INFILTRATION, WITH IV FLUID OF 0.45 NS AT 60 ML/HR. BLUNT CATHETER CONNECTED TO URINE BAG IN PLACE, DRAINING TO A DARK YELLOW OUTPUT, ASPIRATION PRECAUTIONS MAINTAINED. SAFETY MEASURES IMPLEMENTED. PATIENT BED ALARM IS ON. HEAD OF BED ELEVATED. BED IS LOCKED, IN LOWEST POSITION AND SIDE RAILS UP. CALL LIGHT WITHIN REACH OF THE PATIENT. WILL CONTINUE TO MONITOR AND REASSESS FOR ANY CHANGES.
[2021-03-09 20:00] VITALS: BP 101/59
[2021-03-09] MEDS: FINASTERIDE (5 MG) 5 MG TABLET PO SCH (21:06)
[2021-03-09] MEDS: SENNOSIDES 8.6 MG TABLET PO SCH (21:06)
[2021-03-09] MEDS: TAMSULOSIN 0.4 MG CAP.SR.24H PO SCH (21:06)
[2021-03-09] MEDS: INSULIN GLARGINE, 100 UNIT/ML CARTRIDGE SQ SCH (21:19)
[2021-03-09] MEDS: *INSULIN REGULAR(HUMULIN R)HUM 100 UNIT/ML VIAL SQ PRN (21:19)
--- NOTE | 2021-03-09 22:49 | NUR ---
RN NOTE PATIENT REMAINS IN ROOM IN STABLE CONDITION. REPORT GIVEN TO HANK RÍOS FOR CONTINUATION OF CARE
--- NOTE | 2021-03-09 22:50 | NUR ---
RN NOTE PT IN BED, AWAKE. NO SIGNS OF DISTRESS NOTED. BLUNT IN PLACE, DRAINING WELL. IV ON RFA PATENT AND INTACT. IVF NS RUNNING AT 80ML//HR. NO SIGNS OF INFILTRATION NOTED. WILL CONTINUE TO MONITOR.
[2021-03-10] MEDS: IV NS 0.9% 1,000 ML IV PRN (02:27)
[2021-03-10 05:27] VITALS: BP 117/64
--- NOTE | 2021-03-10 05:28 | NUR ---
RN NOTE PT REMAIN STABLE. NO DISTRESS NOTED. REPORT GIVEN TO SHONNA RICO MONA.
--- NOTE | 2021-03-10 05:30 | NUR ---
MS RN NOTE PATIENT SLEEPING, EASILY AWAKENED, RESPONDS TO TOUCH AND NAME. PATIENT STABLE ON 2 LPM OF OXYGEN VIA NC, NO S/S OF DISTRESS OR SHORTNESS OF BREATH NOTED. RIGHT FA #20G RUNNING 0.9% NS @ 80ML/HR. NO S/S OF PAIN NOTED. PATIENT HAS BLUNT CATH DRAINING CLEAR YELLOW URINE. SAFETY MEASURES IN PLACE, BED LOCKED IN LOWEST POSITION, CALL LIGHT WITHIN REACH, BED ALARM ON. WILL CONTINUE TO MONITOR. WILL CONTINUE PLAN OF CARE
[2021-03-10 06:58] LABS: BASOPHILS % (AUTO) 0.3 % (0.0-2.0); EOSINOPHILS % (AUTO) 2.4 % (0.0-6.0); HEMATOCRIT 36 % (39-51); HEMOGLOBIN 11.8 g/dL (13.5-17.5); LYMPHOCYTES # (AUTO) 1.1 /CMM (0.8-4.8); LYMPHOCYTES % (AUTO) 8.4 % (20.0-44.0); MEAN CORPUSCULAR HGB CONC 33 g/dl (31.0-36.0); MEAN CORPUSCULAR VOLUME 85 fL (80-96); MONOCYTES # (AUTO) 1.1 /CMM (0.1-1.30); MONOCYTES % (AUTO) 8.7 % (2.0-12.0); NEUTROPHILS # (AUTO) 10.6 /CMM (1.8-8.9); NEUTROPHILS % (AUTO) 80.2 % (43.0-81.0); PLATELET COUNT (AUTO) 244 /CMM (150-450); RED BLOOD CELL COUNT(AUTO) 4.22 MIL/uL (4.5-6.0); WHITE BLOOD COUNT (AUTO) 13.2 K/uL (4.3-11.0)
[2021-03-10] MEDS: BLOOD SUGAR DIAGNOSTIC 1 EACH STRIP VI SCH ×4 (07:02→22:35)
--- NOTE | 2021-03-10 07:20 | NUR ---
MS RN CLOSING NOTE PATIENT SLEEPING, EASILY AWAKENED, RESPONDS TO TOUCH. PATIENT STABLE ON 2 LPM OF OXYGEN VIA NC, NO S/S OF DISTRESS OR SHORTNESS OF BREATH NOTED. RIGHT FA #20G RUNNING 0.9% NS @ 80ML/HR. NO S/S OF PAIN NOTED. PATIENT HAS BLUNT CATH DRAINING CLEAR YELLOW URINE. SAFETY MEASURES IN PLACE, BED LOCKED IN LOWEST POSITION, CALL LIGHT WITHIN REACH, BED ALARM ON. WILL ENDORSE TO DAY SHIFT NURSE FOR CONTINUITY OF CARE
[2021-03-10 07:30] LABS: CALCIUM, SERUM 8.1 mg/dL (8.5-10.1); CREATININE 1.3 mg/dL (0.6-1.3); POTASSIUM 4.7 mmol/L (3.5-5.1)
[2021-03-10] MEDS: PANTOPRAZOLE 40 MG TABLET.DR PO SCH (08:47)
[2021-03-10] MEDS: AMIODARONE HCL 200 MG TABLET PO SCH ×3 (08:47→17:16)
[2021-03-10] MEDS: GLUCERNA SHAKE 237 ML CAN PO SCH ×2 (08:47→17:22)
[2021-03-10] MEDS: ESCITALOPRAM OXALATE (10 MG) 10 MG TABLET PO SCH (08:48)
[2021-03-10] MEDS: POTASSIUM CHLORIDE 20 MEQ TAB.PRT.SR PO SCH (08:48)
[2021-03-10] MEDS: APIXABAN 5 MG TABLET PO SCH ×2 (08:48→17:19)
[2021-03-10] MEDS: CARBIDOPA/LEV CR 50/200 MG 1 UDTAB.SA PO SCH ×3 (09:06→17:16)
[2021-03-10 10:17] VITALS: BP 104/65
[2021-03-10] MEDS: *INSULIN REGULAR(HUMULIN R)HUM 100 UNIT/ML VIAL SQ PRN ×2 (11:22→17:25)
--- NOTE | 2021-03-10 19:56 | NUR ---
MS RN OPENING NOTES PATIENT AWAKE IN BED, RESPONDS TO NAME BUT CONFUSED. PATIENT STABLE ON 2 LPM OF OXYGEN VIA NC, NO S/S OF DISTRESS OR SHORTNESS OF BREATH NOTED. RIGHT FA #20G RUNNING 0.9% NS @ 80ML/HR. NO S/S OF PAIN NOTED. PATIENT HAS BLUNT CATH DRAINING CLEAR YELLOW URINE. SAFETY MEASURES IN PLACE, BED LOCKED IN LOWEST POSITION, CALL LIGHT WITHIN REACH, BED ALARM ON. WILL CONTINUE TO MONITOR. WILL CONTINUE PLAN OF CARE
[2021-03-10 20:00] VITALS: BP 115/66
[2021-03-10] MEDS: SENNOSIDES 8.6 MG TABLET PO SCH (22:26)
[2021-03-10] MEDS: TAMSULOSIN 0.4 MG CAP.SR.24H PO SCH (22:26)
[2021-03-10] MEDS: FINASTERIDE (5 MG) 5 MG TABLET PO SCH (22:26)
[2021-03-10] MEDS: INSULIN GLARGINE, 100 UNIT/ML CARTRIDGE SQ SCH (22:42)
[2021-03-11 06:09] LABS: BASOPHILS % (AUTO) 0.2 % (0.0-2.0); EOSINOPHILS % (AUTO) 0.8 % (0.0-6.0); HEMATOCRIT 36 % (39-51); HEMOGLOBIN 11.7 g/dL (13.5-17.5); LYMPHOCYTES % (AUTO) 5.9 % (20.0-44.0); MEAN CORPUSCULAR HGB CONC 33 g/dl (31.0-36.0); MEAN CORPUSCULAR VOLUME 85 fL (80-96); MONOCYTES # (AUTO) 1.1 /CMM (0.1-1.30); MONOCYTES % (AUTO) 6.8 % (2.0-12.0); NEUTROPHILS # (AUTO) 14.4 /CMM (1.8-8.9); NEUTROPHILS % (AUTO) 86.3 % (43.0-81.0); PLATELET COUNT (AUTO) 232 /CMM (150-450); RED BLOOD CELL COUNT(AUTO) 4.24 MIL/uL (4.5-6.0); WHITE BLOOD COUNT (AUTO) 16.7 K/uL (4.3-11.0)
[2021-03-11] MEDS: IV NS 0.9% 1,000 ML IV PRN (06:20)
[2021-03-11] MEDS: BLOOD SUGAR DIAGNOSTIC 1 EACH STRIP VI SCH ×4 (06:48→21:55)
[2021-03-11 06:53] LABS: CALCIUM, SERUM 7.7 mg/dL (8.5-10.1); CREATININE 1.2 mg/dL (0.6-1.3); MAGNESIUM 1.9 mg/dL (1.8-2.4)
--- NOTE | 2021-03-11 07:00 | NUR ---
MS RN CLOSING NOTE PATIENT SLEEPING, EASILY AWAKENED, RESPONDS TO NAME AND TOUCH. PATIENT STABLE ON 2 LPM OF OXYGEN VIA NC, NO S/S OF DISTRESS OR SHORTNESS OF BREATH NOTED. RIGHT FA #20G RUNNING 0.9% NS @ 80ML/HR. NO S/S OF PAIN NOTED. PATIENT HAS BLUNT CATH DRAINING CLEAR YELLOW URINE, OUTPUT 600 ML. SAFETY MEASURES IN PLACE, BED LOCKED IN LOWEST POSITION, CALL LIGHT WITHIN REACH, BED ALARM ON. WILL ENDORSE TO DAY SHIFT NURSE FOR CONTINUITY OF CARE
--- NOTE | 2021-03-11 07:54 | NUR ---
MS RN OPENING NOTE PATIENT IS IN BED RESTING, PATIENT IS IN NO ACUTE DISTRESS. PATIENT IS ON OXYGEN 2L ON NC, TOLERATING WELL. PATIENT HAS BLUNT CATHETER. SAFETY PRECAUTIONS ARE ON. BED IS LOCKED IN THE LOWEST POSITION, WITH SIDE RAILS UP, CALL LIGHT WITHIN REACH, WILL CONTINUE TO MONITOR CLOSELY THROUGHOUT THE SHIFT.
[2021-03-11 08:50] VITALS: BP 134/78
[2021-03-11] MEDS: POTASSIUM CHLORIDE 20 MEQ TAB.PRT.SR PO SCH (09:20)
[2021-03-11] MEDS: PANTOPRAZOLE 40 MG TABLET.DR PO SCH (09:20)
[2021-03-11] MEDS: AMIODARONE HCL 200 MG TABLET PO SCH ×3 (09:24→17:07)
[2021-03-11] MEDS: ESCITALOPRAM OXALATE (10 MG) 10 MG TABLET PO SCH (09:24)
[2021-03-11] MEDS: APIXABAN 5 MG TABLET PO SCH ×2 (09:25→17:11)
[2021-03-11] MEDS: GLUCERNA SHAKE 237 ML CAN PO SCH ×2 (09:32→17:08)
[2021-03-11] MEDS: CARBIDOPA/LEV CR 50/200 MG 1 UDTAB.SA PO SCH ×3 (09:33→17:07)
[2021-03-11] MEDS: *INSULIN REGULAR(HUMULIN R)HUM 100 UNIT/ML VIAL SQ PRN ×2 (13:38→22:29)
[2021-03-11 14:44] LABS: BILIRUBIN,URINE NEGATIVE (NEGATIVE); COLOR,URINE YELLOW (YELLOW); LEUKOCYTE ESTERASE ,URINE TRACE (NEGATIVE); NITRITE, URINE NEGATIVE (NEGATIVE); PROTEIN,URINE TRACE mg/dl (NEGATIVE); UGLUCOSE NEGATIVE (NEGATIVE)
[2021-03-11 15:09] LABS: BACTERIA,URINE Few /HPF (None Seen); RBC,URINE TOO NUMEROUS TO COUN /HPF (0-2); SQUAMOUS EPITHELIAL CELL,UR Few /HPF (None Seen)
[2021-03-11 16:15] VITALS: BP 134/78
[2021-03-11] MEDS: INSULIN REGULAR, HUMAN 100 UNIT/ML 3 ML VIAL SQ PRN (17:45)
--- NOTE | 2021-03-11 18:51 | NUR ---
MS RN CLOSING NOTE PATIENT IS IN BED RESTING, PATIENT IS IN NO ACUTE DISTRESS. PATIENT IS ON ROOM AIR TOLERATING WELL. PATIENT HAS BLUNT CATHETER. SAFETY PRECAUTIONS ARE ON. BED IS LOCKED IN THE LOWEST POSITION, WITH SIDE RAILS UP, CALL LIGHT WITHIN REACH, ENDORSE PATIENT TO CORN DETASSELER NURSE.
--- NOTE | 2021-03-11 19:35 | NUR ---
MSRN FULLY AWAKE, YAKUT SPEAKING HAVE OUTGOING RN TRANSLATE, PATIENT PLEASANTLY CONFUSED. REMINDED BY OUTGOING RN NOT TO PULL LINES, APPEARS TO UNDERSTAND.NEED CONSTANT MONITORING AND CLOSE OBSERVATION.. BED ALARM ON. HFR. CLOSELY WATCHED.
[2021-03-11 20:00] VITALS: BP 116/64
[2021-03-11] MEDS: SENNOSIDES 8.6 MG TABLET PO SCH (21:51)
[2021-03-11] MEDS: FINASTERIDE (5 MG) 5 MG TABLET PO SCH (21:51)
[2021-03-11] MEDS: TAMSULOSIN 0.4 MG CAP.SR.24H PO SCH (21:51)
[2021-03-11] MEDS: INSULIN GLARGINE, 100 UNIT/ML CARTRIDGE SQ SCH (22:26)
--- NOTE | 2021-03-11 23:00 | NUR ---
MSRN PULLED OUT BLUNT WITH BALLOON INTACT, WITH SLIGHT BLEEDING AROUND PENIS . REFUSED TO HAVE BLUNT REINSERTED. WILL MONITOR OUTPUT. HL STILL INTACT
--- NOTE | 2021-03-12 01:10 | NUR ---
MSRN VOIDED MODERATED AMOUNT WITH SMALL FORMED STOOLS, URINE BLOOD TINGED. HS CARE STARTED. REPOSITIONED FOR COMFORT
[2021-03-12 06:01] LABS: CALCIUM, SERUM 8.5 mg/dL (8.5-10.1); CREATININE 1.1 mg/dL (0.6-1.3); POTASSIUM 4.8 mmol/L (3.5-5.1)
[2021-03-12 06:02] LABS: BASOPHILS % (AUTO) 0.3 % (0.0-2.0); EOSINOPHILS % (AUTO) 2.2 % (0.0-6.0); HEMATOCRIT 35 % (39-51); HEMOGLOBIN 11.6 g/dL (13.5-17.5); LYMPHOCYTES % (AUTO) 6.9 % (20.0-44.0); MEAN CORPUSCULAR HGB CONC 33 g/dl (31.0-36.0); MEAN CORPUSCULAR VOLUME 85 fL (80-96); MONOCYTES # (AUTO) 1.1 /CMM (0.1-1.30); MONOCYTES % (AUTO) 7.2 % (2.0-12.0); NEUTROPHILS # (AUTO) 12.2 /CMM (1.8-8.9); NEUTROPHILS % (AUTO) 83.4 % (43.0-81.0); PLATELET COUNT (AUTO) 233 /CMM (150-450); RED BLOOD CELL COUNT(AUTO) 4.11 MIL/uL (4.5-6.0); WHITE BLOOD COUNT (AUTO) 14.6 K/uL (4.3-11.0)
[2021-03-12] MEDS: BLOOD SUGAR DIAGNOSTIC 1 EACH STRIP VI SCH ×4 (06:23→22:10)
--- NOTE | 2021-03-12 06:50 | NUR ---
MSRN AM CARE DONE. LARGE URINE OUTPUT. SLEPT GOOD THE WHOLE NIGHT. BS 97.
--- NOTE | 2021-03-12 07:30 | NUR ---
MS RN OPENING NOTES RECEIVED PATIENT IN BED, ASLEEP, NOT IN ANY FORM OF ACUTE DISTRESS NOTED. EASILY AWAKEN BY VERBAL AND TACTILE STIMULI. RESPONDS TO NAME BUT CONFUSED. PATIENT STABLE ON RA, NO S/S OF DISTRESS OR SHORTNESS OF BREATH NOTED. RIGHT FA #20G SALINE LOCK, PATENT AND FLUSHES WELL. NO S/S OF PAIN NOTED. SAFETY MEASURES IN PLACE, BED LOCKED IN LOWEST POSITION, CALL LIGHT WITHIN REACH, BED ALARM ON. PATIENT IS VOIDING FREELY. WILL CONTINUE TO MONITOR CURRENT STATUS.
[2021-03-12 08:00] VITALS: BP 118/64
[2021-03-12] MEDS: GLUCERNA SHAKE 237 ML CAN PO SCH ×2 (08:00→17:11)
[2021-03-12 08:04] LABS: EOSINOPHILS % (MANUAL) 1 % (0-4); LYMPHOCYTES % (MANUAL) 8 % (16-48); MONOCYTES % (MANUAL) 8 % (0-11.0); NEUTROPHILS % (MANUAL) 83 (42-76)
[2021-03-12] MEDS: AMIODARONE HCL 200 MG TABLET PO SCH (08:25)
[2021-03-12] MEDS: PANTOPRAZOLE 40 MG TABLET.DR PO SCH (08:25)
[2021-03-12] MEDS: ESCITALOPRAM OXALATE (10 MG) 10 MG TABLET PO SCH (08:25)
[2021-03-12] MEDS: POTASSIUM CHLORIDE 20 MEQ TAB.PRT.SR PO SCH (08:26)
[2021-03-12] MEDS: CARBIDOPA/LEV CR 50/200 MG 1 UDTAB.SA PO SCH ×3 (08:26→16:54)
[2021-03-12] MEDS: APIXABAN 5 MG TABLET PO SCH ×2 (08:27→16:54)
[2021-03-12] MEDS ORDERED: FUROSEMIDE 20 MG/2 ML VIAL IV ONE (10:30)
--- NOTE | 2021-03-12 11:40 | NUR ---
RN NOTES PATIENT WAS SEEN BY PT TODAY. PATIENT ABLE TO TOLERATE PT ACTIVITIES. NO S/SX OF DISCOMFORT NOTED.
[2021-03-12] MEDS: INSULIN REGULAR, HUMAN 100 UNIT/ML 3 ML VIAL SQ PRN ×2 (11:50→17:17)
[2021-03-12 16:00] VITALS: BP 118/58
--- NOTE | 2021-03-12 18:40 | NUR ---
MS RN CLOSING NOTES PATIENT IN BED, AWAKE, A&O X2, WITH PERIODS OF CONFUSION AT TIMES. NOT IN ANY FORM OF ACUTE DISTRESS NOTED. ON RS TOLERATING WELL. WITH SALINE LOCK ON L FOREARM, PATENT AND INFUSING WELL. NO REDNESS, NO S/SX OF INFILTRATION NOTED. NO S/SX OF PAIN NOTED AT THIS TIME. KEPT PATIENT CLEAN AND DRY. GOOD PERINEAL CARE RENDERED BY OD GRINDER OPERATOR. SAFETY PRECAUTIONS OBSERVED AND MAINTAINED DURING THE SHIFT: BED ON LOWEST LOCKED POSITION. SIDE RAILS UP X 2. DUE MEDS GIVEN ORDERED. KEPT CALL LIGHT WITHIN EASY REACH.ENDORSED TO CONE MACHINE FEEDER NURSE FOR CONTINUITY OF CARE.
--- NOTE | 2021-03-12 19:30 | NUR ---
MSRN EASILY AWAKENED WHEN CALLED ABLE TO VERBALIZE HIS NEEDS IN SIMPLE SAO TOMEAN. MORE ALERT. NO SOB. KEPT DRY CLEAN AND COMFORTABLE. STABLE OF THIS TIME.
--- NOTE | 2021-03-12 20:00 | NUR ---
MSRN PARTIALLY BATHED BY REACH LIFT TRUCK DRIVER HAD BM. REPOSITIONED PER PATIENTS COMFORT. CLOSELY WATCHED.
[2021-03-12 20:35] VITALS: BP 109/56
[2021-03-12] MEDS: TAMSULOSIN 0.4 MG CAP.SR.24H PO SCH (22:01)
[2021-03-12] MEDS: SENNOSIDES 8.6 MG TABLET PO SCH (22:01)
[2021-03-12] MEDS: FINASTERIDE (5 MG) 5 MG TABLET PO SCH (22:01)
[2021-03-12] MEDS: INSULIN GLARGINE, 100 UNIT/ML CARTRIDGE SQ SCH (22:17)
[2021-03-12] MEDS: *INSULIN REGULAR(HUMULIN R)HUM 100 UNIT/ML VIAL SQ PRN (22:20)
--- NOTE | 2021-03-12 22:20 | NUR ---
MSRN BS 204 COVERED WITH 4 UNITS OF REGULAR INSULIN SQ AND 12 UNITS OF LANTUS SQ. SNACKS ASSISTED, HOB 30 TO 45 DEGREES TO PREVENT ASPIRATION. ATE 100%. REPOSITIONED.
--- NOTE | 2021-03-13 07:04 | NUR ---
MSRN RESTING QUIETLY, ALL NEEDS ATTENDED. IVF CONTINUED Addendum: 03/13/21 at 0706 by SHWETHA CHAN RN NOT INTENDED FOR THIS PATIENT ABOVE DOCUMENTATION
--- NOTE | 2021-03-13 07:06 | NUR ---
MSRN LARGE URINE OUTPUT. COOPERATIVE MORE AWAKE. STABLE
--- NOTE | 2021-03-13 07:25 | NUR ---
ms rn received on bed, awake,alert,oriented x1,not in any form of distress, respirations even and unlabored,no sob noted,will monitor patient's condition.
[2021-03-13 08:00] VITALS: BP 112/76
[2021-03-13 08:10] LABS: BASOPHILS # (AUTO) 0.1 /CMM (0.0-0.2); BASOPHILS % (AUTO) 0.4 % (0.0-2.0); EOSINOPHILS % (AUTO) 2.7 % (0.0-6.0); HEMATOCRIT 39 % (39-51); HEMOGLOBIN 12.7 g/dL (13.5-17.5); LYMPHOCYTES # (AUTO) 1.2 /CMM (0.8-4.8); LYMPHOCYTES % (AUTO) 9.8 % (20.0-44.0); MEAN CORPUSCULAR HGB CONC 33 g/dl (31.0-36.0); MEAN CORPUSCULAR VOLUME 85 fL (80-96); MONOCYTES # (AUTO) 0.9 /CMM (0.1-1.30); MONOCYTES % (AUTO) 7.5 % (2.0-12.0); NEUTROPHILS # (AUTO) 9.7 /CMM (1.8-8.9); NEUTROPHILS % (AUTO) 79.6 % (43.0-81.0); PLATELET COUNT (AUTO) 251 /CMM (150-450); RED BLOOD CELL COUNT(AUTO) 4.53 MIL/uL (4.5-6.0); WHITE BLOOD COUNT (AUTO) 12.2 K/uL (4.3-11.0)
[2021-03-13] MEDS: ESCITALOPRAM OXALATE (10 MG) 10 MG TABLET PO SCH (08:19)
[2021-03-13] MEDS: PANTOPRAZOLE 40 MG TABLET.DR PO SCH (08:19)
[2021-03-13] MEDS: POTASSIUM CHLORIDE 20 MEQ TAB.PRT.SR PO SCH (08:20)
[2021-03-13] MEDS: BLOOD SUGAR DIAGNOSTIC 1 EACH STRIP VI SCH ×4 (08:21→22:01)
[2021-03-13] MEDS: AMIODARONE HCL 200 MG TABLET PO SCH (08:21)
[2021-03-13] MEDS: CARBIDOPA/LEV CR 50/200 MG 1 UDTAB.SA PO SCH ×3 (08:23→16:57)
[2021-03-13] MEDS: APIXABAN 5 MG TABLET PO SCH ×2 (08:24→16:58)
--- NOTE | 2021-03-13 08:30 | NUR ---
ms ramirez breakfast served,due med given,tolerated well.
[2021-03-13] MEDS: GLUCERNA SHAKE 237 ML CAN PO SCH ×2 (08:57→17:05)
--- NOTE | 2021-03-13 09:00 | NUR ---
ms rn was seen by dr. whitmore w/ orders made and carried out.
[2021-03-13 09:05] LABS: CALCIUM, SERUM 8.6 mg/dL (8.5-10.1); CREATININE 1.3 mg/dL (0.6-1.3); POTASSIUM 4.4 mmol/L (3.5-5.1)
--- NOTE | 2021-03-13 12:00 | NUR ---
ms rn was seen by dr. whitmore w/ orders made and carried out.
[2021-03-13] MEDS: INSULIN REGULAR, HUMAN 100 UNIT/ML 3 ML VIAL SQ PRN ×2 (12:24→17:06)
[2021-03-13 16:00] VITALS: BP 121/69
--- NOTE | 2021-03-13 19:04 | NUR ---
ms rn on bed, no distress noted,all needs attended.
--- NOTE | 2021-03-13 19:30 | NUR ---
RN OPENING NOTE PATIENT IS IN BED AWAKE, PATIENT IS A/O X 1. ORIENTED TO NAME. PATIENT IS ALGERIAN SPEAKING ONLY. IV PATENT AND INTACT. BREATHING EVEN AND UNLABORED, TOLERATING ROOM AIR. SAFETY MEASURES IN PLACE: CALL LIGHT WITHIN REACH, BED IN LOCKED AND LOWEST POSITION, SIDE RAILS UP X 3, BED ALARM ON. WILL MONITOR PATIENT CLOSELY.
[2021-03-13 20:00] VITALS: BP_SYST 111; BP_SYST 128; BP_DIAS 66; BP_DIAS 67
[2021-03-13] MEDS: SENNOSIDES 8.6 MG TABLET PO SCH (21:53)
[2021-03-13] MEDS: TAMSULOSIN 0.4 MG CAP.SR.24H PO SCH (21:53)
[2021-03-13] MEDS: FINASTERIDE (5 MG) 5 MG TABLET PO SCH (21:53)
[2021-03-13] MEDS: INSULIN GLARGINE, 100 UNIT/ML CARTRIDGE SQ SCH (21:55)
[2021-03-13] MEDS: *INSULIN REGULAR(HUMULIN R)HUM 100 UNIT/ML VIAL SQ PRN (21:57)
[2021-03-13 22:00] VITALS: BP 111/66
[2021-03-14] MEDS: INSULIN REGULAR, HUMAN 100 UNIT/ML 3 ML VIAL SQ PRN ×3 (06:27→16:35)
[2021-03-14] MEDS: BLOOD SUGAR DIAGNOSTIC 1 EACH STRIP VI SCH ×4 (06:36→22:27)
--- NOTE | 2021-03-14 06:52 | NUR ---
RN CLOSING NOTE PATIENT IS IN BED EYES CLOSED, AWAKENED EASILY. PATIENT IS A/O X 1-2. CAN FOLLOW COMMANDS. IV PATENT AND INTACT. BREATHING EVEN AND UNLABORED, TOLERATING ROOM AIR. NOT IN ANY APPARENT DISTRESS. BS 2200 156 MG/DL AND BS 0630 139 MG/DL, COVERAGE PER SLIDING SCALE. SACRAL REDNESS APPLIED Z GUARD AND COVERED WITH MEPILEX. SAFETY MEASURES MAINTAINED. CALL LIGHT WITHIN REACH, BED IN LOCKED AND LOWEST POSITION, SIDE RAILS UP X 3, BED ALARM ON. ALL NEEDS MET AND ATTENDED, ALL ORDERS CARRIED OUT. WILL ENDORSE TO DAY SHIFT NURSE FOR MONA.
--- NOTE | 2021-03-14 07:42 | NUR ---
MS RN OPENING NOTES RECEIVED PATIENT IN BED, PATIENT IS A/O X1 EASILY AWAKEN BY VERBAL AND TACTILE STIMULI. RESPONDS TO NAME BUT CONFUSED. PATIENT IS BREATHING EVENLY AND NONLABORED, NO SIGNS OF DISTRESS STABLE ON ROOM AIR. PATIENT HAS IV ACCESS ON RIGHT FA #20G SALINE LOCK, PATENT AND FLUSHES WELL. NO S/S OF PAIN NOTED. SAFETY MEASURES IN PLACE, BED LOCKED IN LOWEST POSITION, CALL LIGHT WITHIN REACH, BED ALARM ON. WILL CONTINUE TO MONITOR.
[2021-03-14 08:00] VITALS: BP 114/69
[2021-03-14] MEDS: POTASSIUM CHLORIDE 20 MEQ TAB.PRT.SR PO SCH (08:08)
[2021-03-14] MEDS: PANTOPRAZOLE 40 MG TABLET.DR PO SCH (08:08)
[2021-03-14] MEDS: ESCITALOPRAM OXALATE (10 MG) 10 MG TABLET PO SCH (08:08)
[2021-03-14] MEDS: GLUCERNA SHAKE 237 ML CAN PO SCH ×2 (08:08→17:01)
[2021-03-14] MEDS: AMIODARONE HCL 200 MG TABLET PO SCH (08:08)
[2021-03-14] MEDS: APIXABAN 5 MG TABLET PO SCH ×2 (08:13→16:37)
[2021-03-14] MEDS: CARBIDOPA/LEV CR 50/200 MG 1 UDTAB.SA PO SCH ×3 (08:27→16:36)
--- NOTE | 2021-03-14 10:30 | NUR ---
RN NOTE PATIENT'S BLOOD GLUCOSE WAS 176. 3 UNITS OF INSULIN GIVEN. WILL CONTINUE TO MONITOR
[2021-03-14 11:32] LABS: BASOPHILS # (AUTO) 0.1 /CMM (0.0-0.2); BASOPHILS % (AUTO) 0.7 % (0.0-2.0); EOSINOPHILS % (AUTO) 2.2 % (0.0-6.0); HEMATOCRIT 38 % (39-51); HEMOGLOBIN 12.4 g/dL (13.5-17.5); LYMPHOCYTES # (AUTO) 1.1 /CMM (0.8-4.8); MEAN CORPUSCULAR HGB CONC 33 g/dl (31.0-36.0); MEAN CORPUSCULAR VOLUME 85 fL (80-96); MONOCYTES % (AUTO) 9.2 % (2.0-12.0); NEUTROPHILS # (AUTO) 8.4 /CMM (1.8-8.9); NEUTROPHILS % (AUTO) 77.9 % (43.0-81.0); PLATELET COUNT (AUTO) 274 /CMM (150-450); RED BLOOD CELL COUNT(AUTO) 4.42 MIL/uL (4.5-6.0); WHITE BLOOD COUNT (AUTO) 10.8 K/uL (4.3-11.0)
[2021-03-14 11:52] LABS: CALCIUM, SERUM 8.1 mg/dL (8.5-10.1); CREATININE 1.3 mg/dL (0.6-1.3); POTASSIUM 4.7 mmol/L (3.5-5.1)
[2021-03-14 16:13] VITALS: BP 115/59
--- NOTE | 2021-03-14 16:30 | NUR ---
RN NOTE PATIENT'S BLOOD GLUCOSE WAS 193. 3 UNITS OF INSULIN GIVEN. WILL CONTINUE TO MONITOR
--- NOTE | 2021-03-14 18:42 | NUR ---
MS RN CLOSING NOTES PATIENT IN BED, PATIENT IS A/O X1 EASILY AWAKEN BY VERBAL AND TACTILE STIMULI. RESPONDS TO NAME BUT CONFUSED. PATIENT IS BREATHING EVENLY AND NONLABORED, NO SIGNS OF DISTRESS STABLE ON ROOM AIR. PATIENT HAS IV ACCESS ON RIGHT FA #20G SALINE LOCK, PATENT AND FLUSHING WELL. NO S/S OF PAIN NOTED. ALL MEDICATIONS GIVEN ORDERED. SAFETY MEASURES IN PLACE, BED LOCKED IN LOWEST POSITION, CALL LIGHT WITHIN REACH, BED ALARM ON. WILL ENDORSE TO ONCOMING SHIFT.
--- NOTE | 2021-03-14 20:00 | NUR ---
MS RN OPENING NOTES PATIENT AWAKE IN BED, RESPONDS TO NAME AND TOUCH, ABLE TO ANSWER YES/NO QUESTIONS. PATIENT STABLE ON ROOM AIR, NO S/S OF DISTRESS OR SHORTNESS OF BREATH NOTED. PATIENT APPEARS COMFORTABLE, NO S/S OF PAIN AT THIS TIME. LEFT FOREARM #22G PATENT AND INTACT, SALINE LOCKED. SAFETY MEASURES IN PLACE, CALL LIGHT WITHIN REACH, SIDE RAILS UP X 3, HOB ELEVATED, BED ALARM ON. WILL CONTINUE TO MONITOR, WILL CONTINUE PLAN OF CARE
[2021-03-14 20:45] VITALS: BP 126/61
[2021-03-14] MEDS: FINASTERIDE (5 MG) 5 MG TABLET PO SCH (22:27)
[2021-03-14] MEDS: SENNOSIDES 8.6 MG TABLET PO SCH (22:27)
[2021-03-14] MEDS: ACETAMINOPHEN 325 MG TABLET PO PRN (22:27)
[2021-03-14] MEDS: TAMSULOSIN 0.4 MG CAP.SR.24H PO SCH (22:27)
[2021-03-14] MEDS: INSULIN GLARGINE, 100 UNIT/ML CARTRIDGE SQ SCH (22:36)
[2021-03-14] MEDS: *INSULIN REGULAR(HUMULIN R)HUM 100 UNIT/ML VIAL SQ PRN (22:37)
--- NOTE | 2021-03-15 07:00 | NUR ---
MS RN CLOSING NOTES PATIENT RESTING IN BED, RESPONDS TO NAME. PATIENT STABLE ON 2LPM OF OXYGEN VIA NC, NO S/S OF DISTRESS OR SHORTNESS OF BREATH NOTED. PATIENT APPEARS COMFORTABLE, NO S/S OF PAIN AT THIS TIME. LEFT FOREARM #22G SALINE LOCKED. SAFETY MEASURES IN PLACE, CALL LIGHT WITHIN REACH, SIDE RAILS UP X 3, HOB ELEVATED, BED ALARM ON. WILL ENDORSE TO DAY SHIFT NURSE FOR CONTINUITY OF CARE
[2021-03-15] MEDS: BLOOD SUGAR DIAGNOSTIC 1 EACH STRIP VI SCH ×3 (07:36→16:42)
[2021-03-15 08:00] VITALS: BP 125/68
[2021-03-15] MEDS: GLUCERNA SHAKE 237 ML CAN PO SCH ×2 (08:08→17:10)
[2021-03-15] MEDS: PANTOPRAZOLE 40 MG TABLET.DR PO SCH (08:08)
[2021-03-15] MEDS: AMIODARONE HCL 200 MG TABLET PO SCH (08:32)
[2021-03-15] MEDS: POTASSIUM CHLORIDE 20 MEQ TAB.PRT.SR PO SCH (08:32)
[2021-03-15] MEDS: ESCITALOPRAM OXALATE (10 MG) 10 MG TABLET PO SCH (08:32)
[2021-03-15] MEDS: CARBIDOPA/LEV CR 50/200 MG 1 UDTAB.SA PO SCH ×3 (08:32→16:08)
[2021-03-15] MEDS: APIXABAN 5 MG TABLET PO SCH ×2 (08:34→16:10)
[2021-03-15] MEDS ORDERED: APIX5TAB PO (09:36)
[2021-03-15] MEDS ORDERED: AMIO200T7 PO (09:36)
[2021-03-15] MEDS: INSULIN REGULAR, HUMAN 100 UNIT/ML 3 ML VIAL SQ PRN (12:18)
[2021-03-15 16:00] VITALS: BP 107/57
--- NOTE | 2021-03-15 18:34 | NUR ---
MS RN CLOSING NOTES PATIENT CURRENTLY RESTING IN BED, A/O X1. ON 2LPM OF OXYGEN VIA NC, NO S/S OF DISTRESS OR SOB NOTED. NO PAIN NOTED AT THIS TIME. IV ACCESS TO LEFT FOREARM #22G - PATENT AND INTACT - SALINE LOCKED. PATIENT TO DC BACK TO [facility] @ 1999. DISCHARGE PAPERWORK DONE. SAFETY MEASURES IN PLACE. CALL LIGHT WITHIN REACH. WILL ENDORSE TO CUSTOMS COMPLIANCE SPECIALIST NURSE FOR [facility].
--- NOTE | 2021-03-15 18:41 | NUR ---
MS RN NOTE SON WOULD LIKE TO BE CALLED WHEN PATIENT LEAVES HOSPITAL.
[2021-03-15 20:00] VITALS: BP 115/58
--- NOTE | 2021-03-15 20:00 | NUR ---
MS RN OPENING NOTES NOTES PATIENT ALERT/ORIENTED X 1, RESPONDS TO NAME AND FOLLOWS SIMPLE COMMANDS. PATIENT STABLE ON 2 LPM OF OXYGEN, NO S/S OF DISTRESS OR SHORTNESS OF BREATH. PATIENT TO BE PICKED UP AT 2200 FOR DISCHARGE TO [facility]. SAFETY MEASURES IN PLACE, CALL LIGHT WITHIN REACH, BED ALARM ON, SIDE RAILS UP X 3. WILL CONTINUE TO MONITOR. WILL CONTINUE PLAN OF CARE
--- NOTE | 2021-03-15 22:00 | NUR ---
MS MAIL HANDLER ASSISTANT NOTES PATIENT A/O X 1, RESPONDS TO NAME. NO S/S OF DISTRESS OR SHORTNESS OF BREATH NOTED. VITAL SIGNS STABLE. PATIENT IV ACCESS REMOVED INTACT, NO S/S OF BLEEDING. REPORT AND DISCHARGE INSTRUCTIONS GIVEN TO EMT'S. PATIENT TAKEN VIA STRETCH ACCOMPANIED BY EMT'S IN STABLE CONDITION.
== END 2021-03-15 22:13 | DRG 871 ==
LOC: ER 23:04 → TRANSITION 03-02 08:08 → ICU 03-02 10:30 → TELE1 03-03 14:04 → MEDSG1 03-05 02:06 → MED 03-10 05:12
PROVIDERS: ADMIT Internal Medicine; ATTEND Legal Medicine
DX: A41.9 Sepsis, unspecified organism (principal); N17.0 Acute kidney failure with tubular necrosis; E43 Unspecified severe protein-calorie malnutrition; G92 Toxic encephalopathy; J18.9 Pneumonia, unspecified organism; E87.1 Hypo-osmolality and hyponatremia; I13.0 Hypertensive heart and chronic kidney disease with heart failure and stage 1 through stage 4 chronic kidney disease, or unspecified chronic kidney disease; E87.2 Acidosis; J98.11 Atelectasis; N39.0 Urinary tract infection, site not specified; I48.91 Unspecified atrial fibrillation; E11.65 Type 2 diabetes mellitus with hyperglycemia; E83.42 Hypomagnesemia; E86.0 Dehydration; E86.1 Hypovolemia; G20 Parkinson's disease; Z20.822 Contact with and (suspected) exposure to COVID-19; I50.9 Heart failure, unspecified; F02.80 Dementia in other diseases classified elsewhere, unspecified severity, without behavioral disturbance, psychotic disturbance, mood disturbance, and anxiety; N18.9 Chronic kidney disease, unspecified; I70.0 Atherosclerosis of aorta; E11.22 Type 2 diabetes mellitus with diabetic chronic kidney disease; Z79.84 Long term (current) use of oral hypoglycemic drugs; Z79.82 Long term (current) use of aspirin; Z79.899 Other long term (current) drug therapy; N13.9 Obstructive and reflux uropathy, unspecified; R09.02 Hypoxemia; Z91.81 History of falling; N40.1 Benign prostatic hyperplasia with lower urinary tract symptoms; R31.9 Hematuria, unspecified
CPT/HCPCS: 36415; 70450-TC; 70486-TC; 71045-TC; 72125-TC; 76770-TC; 80048-TC; 80053-TC; 80061-TC; 80076-TC; 81001; 82728-TC; 82962-TC; 83540-TC; 83735-TC; 84100-TC; 84295-TC; 84300-TC; 84439-TC; 84443-TC; 84484-TC; 84550-TC; 85025-TC; 85730-TC; 87081-TC; 92526; 92611-TC; 93307-TC; 93970-TC; 94799-TC; 97110-TC; 97112-TC; 97116-TC; 97530-TC; C9803; G0378; J0282; J0696; J1650; J1815; J1940; J2916; J3475; J3490; J7030; J7040; J7060; U0003